=== PATIENT | female | born 1985 | race Caucasian/White ===

== ENCOUNTER 2018-12-23 09:29 | Emergency (ER) | payer BC ==
[2018-12-23 10:00] VITALS: BP 125/85
--- NOTE | 2018-12-23 10:03 | UC ---
Back Pain HPI - HPI Summary HPI Summary: 33 yo female presents with low back pain. 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 About a month ago she was working and felt a stain in her low back while moving a patient. Was painful for a few days, but improved with rest. Today she tells me that on 12/20 she felt some low back pain, but nothing significant. On 12/21 she went to work and was very active and was moving/turning/lifting patients as usual and her back pain worsened. Since that time her pain has been in her lower back with radiation into the left buttock and posterior left leg. She tried to go to work today, but was too painful and left early. She has taken ibuprofen with mild relief. Denies numbness, tingling, saddle anesthesia, or loss of bowel/bladder control. - History of Current Complaint Chief Complaint: UCBackPain Stated Complaint: BACK PAIN Time Seen by Provider: 12/23/18 10:02 Hx Obtained From: Patient Hx Last Menstrual Period: iud Onset/Duration: Gradual Onset Timing: Constant Severity Initially: Moderate Severity Currently: Severe Pain Intensity: 7 Pain Scale Used: 0-10 Numeric - Allergies/Home Medications Allergies/Adverse Reactions: Allergies Allergy/AdvReac Type Severity Reaction Status Date / Time No Known Allergies Allergy Verified 12/23/18 10:01 PMH/Surg Hx/FS Hx/Imm Hx - Additional Past Medical History Additional PMH: None - Surgical History Surgical History: Yes Surgery Procedure, Year, and Place: ovarian cyst right side - Family History Known Family History: Positive: None - Social History Occupation: Employed Full-time Lives: With Family Alcohol Use: None Substance Use Type: None Smoking Status (MU): Heavy Every Day Tobacco Smoker Household Exposure Type: Cigarettes Review of Systems All Other Systems Reviewed And Are Negative: Yes Constitutional: Positive: Negative Skin: Positive: Negative Respiratory: Positive: Negative Cardiovascular: Positive: Negative Gastrointestinal: Positive: Negative Genitourinary: Positive: Negative Neurovascular: Positive: Negative Musculoskeletal: Positive: Other: - Low back pain Neurological: Positive: Negative Psychological: Positive: Negative Physical Exam - Summary Physical Exam Summary: GENERAL: NAD. WDWN. No pain distress. SKIN: No rashes, sores, lesions, or open wounds. NECK: Supple. FROM. Nontender. No lymphadenopathy. CHEST: CTAB. No r/r/w. No accessory muscle use. Breathing comfortably and in no distress. CV: RRR. Without m/r/g. Pulses intact. Cap refill <2seconds MSK: TTP over left SI. No vertebral tenderness. Pain with flexion and extension of spine. Positive SLR on left for low back pain with radiation into left buttocks and left leg. Strength 5/5 B/L LEs including dorsiflexion and plantar flexion. FROM B/L LEs. No edema. NEURO: Alert. Sensations intact B/L LEs L3-S1. Reflexes intact PSYCH: Age appropriate behavior. Triage Information Reviewed: Yes Vital Signs: Initial Vital Signs Temp 98.6 F 12/23/18 09:57 Pulse 96 12/23/18 09:57 Resp 17 12/23/18 09:57 BP 125/85 12/23/18 09:57 Pulse Ox 100 12/23/18 09:57 Vital Signs Reviewed: Yes Back Pain Course/Dx - Course Course Of Treatment: Suspect sciatica. Will start her with physical therapy and prednisone. Advised to continue the ibuprofen. Off work today and sunday. Strongly encouraged to f/u with Dr. Alonso for potential work related injury. - Differential Dx/Diagnosis Provider Diagnosis: Sciatica Discharge - Sign-Out/Discharge Documenting (check all that apply): Patient Departure All imaging exams completed and their final reports reviewed: No Studies - Discharge Plan Condition: Stable Disposition: HOME Prescriptions: Ibuprofen TAB* [Motrin TAB* 600 MG] 600 mg PO Q8H PRN #30 tab PRN Reason: Pain predniSONE TAB* [Deltasone 20 MG TAB*] 20 mg PO DAILY #11 tab Patient Education Materials: Sciatica (ED) Forms: *Work Release Referrals: Hanny Temple MD [Primary Care Provider] - Mike Alonso MD [Medical Doctor] - As Soon As Possible Additional Instructions: If you develop a fever, shortness of breath, chest pain, new or worsening symptoms - please call your PCP or go to the ED. 1) Rest and apply heat/ice to your lower back to reduce pain 2) Please schedule an appointment with Physical Therapy for further treatment 3) Please call Dr. Alonso at the number below to schedule an appointment regarding your low back pain - Billing Disposition and Condition Condition: STABLE Disposition: Home
== END 2018-12-23 10:27 | disposition home or self-care (01) ==
LOC: UCEAST 09:29
DX: M54.30 Sciatica, unspecified side (principal); F17.200 Nicotine dependence, unspecified, uncomplicated
CPT/HCPCS: 99212; G0463

== ENCOUNTER 2019-09-16 08:01 | Emergency (ER) | payer BC ==
[2019-09-16] MEDS ORDERED: hydrOXYzine HCL TAB* 25 MG PO ONE (08:18)
[2019-09-16 10:16] VITALS: BP 124/74
--- NOTE | 2019-09-16 10:25 | ED ---
Psychiatric Complaint - HPI Summary HPI Summary: Patient is a 34-year-old female presenting to the ED with symptoms of "panic attacks" which she feels has been worsening since December of this year. She states she has never had this in the past, however her committed suicide in December of this year and since then she has been waking up intermittently with symptoms of heart palpitations, bilateral upper extremity tingling, lightheadedness and feelings of shortness of breath. She states symptoms resolve after an episode of crying intake several hours usually. She denies taking any medication, history of depression or anxiety or any history of panic attacks. She does not see a counselor or therapist. Denies any cardiac conditions. Denies SI/HI. - History Of Current Complaint Chief Complaint: EDChestWallPain Time Seen by Provider: 09/16/19 08:11 Hx Obtained From: Patient Hx Last Menstrual Period: iud ?: No Onset/Duration: Sudden Onset Timing: Constant Severity Initially: Moderate Severity Currently: Moderate Character: Anxious Aggravating Factor(s): Recent Stress - december 2018 Alleviating Factor(s): Nothing Associated Signs And Symptoms: Positive: Sleep Disturbance, Appetite Change, Social Withdrawal - Risk Factor(s) Completed Suicide Risk Factors: Negative - Allergies/Home Medications Allergies/Adverse Reactions: Allergies Allergy/AdvReac Type Severity Reaction Status Date / Time No Known Allergies Allergy Verified 09/16/19 08:23 PMH/Surg Hx/FS Hx/Imm Hx Previously Healthy: Yes - Surgical History Surgery Procedure, Year, and Place: ovarian cyst right side - Immunization History Hx Pertussis Vaccination: No Immunizations Up to Date: Yes Infectious Disease History: No Infectious Disease History: Denies: Traveled Outside the [place] in Last 30 Days - Family History Known Family History: Positive: None - Social History Occupation: Employed Full-time Lives: With Family Alcohol Use: None Hx Substance Use: No Substance Use Type: Reports: None Hx Tobacco Use: Yes Smoking Status (MU): Heavy Every Day Tobacco Smoker Review of Systems Negative: Fever, Chills, Fatigue, Skin Diaphoresis Negative: Palpitations, Chest Pain Negative: Shortness Of Breath, Cough Negative: Arthralgia, Myalgia Skin: Negative Neurological: Negative Positive: Anxious All Other Systems Reviewed And Are Negative: Yes Physical Exam Triage Information Reviewed: Yes Vital Signs On Initial Exam: Initial Vitals Temp Pulse Resp BP Pulse Ox 98.0 F 73 16 137/74 100 09/16/19 08:05 09/16/19 08:05 09/16/19 08:05 09/16/19 08:05 09/16/19 08:05 Vital Signs Reviewed: Yes Appearance: Positive: Well-Appearing, Well-Nourished Skin: Positive: Warm, Skin Color Reflects Adequate Perfusion Head/Face: Positive: Normal Head/Face Inspection Eyes: Positive: EOMI, Conjunctiva Clear Neck: Positive: Supple, No Lymphadenopathy Respiratory/Lung Sounds: Positive: Clear to Auscultation, Breath Sounds Present Cardiovascular: Positive: RRR, Pulses are Symmetrical in both Upper and Lower Extremities, S1, S2. Negative: Leg Edema Left, Leg Edema Right Musculoskeletal: Positive: Normal, Strength/ROM Intact Neurological: Positive: Speech Normal Psychiatric: Positive: Anxious - and tearful AVPU Assessment: Alert Procedures - Sedation Patient Received Moderate/Deep Sedation with Procedure: No Diagnostics - Vital Signs Vital Signs Temp Pulse Resp BP Pulse Ox 09/16/19 10:14 98.5 F 87 16 124/74 100 09/16/19 09:00 79 18 100 09/16/19 08:47 91 23 124/84 100 09/16/19 08:19 87 12 95 09/16/19 08:17 80 134/72 100 09/16/19 08:05 98.0 F 73 16 137/74 100 - Laboratory Lab Statement: Any lab studies that have been ordered have been reviewed, and results considered in the medical decision making process. Course/Dx - Course Course Of Treatment: During the course of treatment, the patient is evaluated for symptoms of panic attacks. She has been having these symptoms since December, since her committed suicide. She was given discussed case with social work, who has given her outside resources at [facility]. EKG performed which shows NSR with a rate of 83. Patient was on the cardiopulmonary monitor while in the ED which showed no acute changes. She denies any chest pain or shortness of breath at this time. She will be diagnosed with panic attacks and anxiety, symptoms related to life event. She will follow-up at [facility]. She is taken out of work 4 days. - Differential Dx/Clinical Impression Differential Diagnosis/HQI/PQRI: Positive: Other - anxiety, PTSD, anxious about life event, depression, sadness, panic attack Provider Diagnosis: Panic attack Discharge ED - Sign-Out/Discharge Documenting (check all that apply): Patient Departure - Discharge Plan Condition: Stable Disposition: HOME Prescriptions: RX: hydrOXYzine HCL TAB* [Atarax 25 MG TAB*] 25 mg PO TID PRN #15 tab MDD 3 PRN Reason: Anxiety Patient Education Materials: Hydroxyzine (By mouth), Panic Attack (ED) Forms: *Work Release Referrals: [facility] [Outside] - 1 Week Hanny Temple MD [Primary Care Provider] - Additional Instructions: Take hydroxyzine three times daily as needed for anxiety Please follow up wtih - Billing Disposition and Condition Condition: STABLE Disposition: Home
== END 2019-09-16 10:14 | disposition home or self-care (01) ==
LOC: ED 08:01
DX: F41.0 Panic disorder [episodic paroxysmal anxiety] (principal); F17.200 Nicotine dependence, unspecified, uncomplicated
CPT/HCPCS: 93005; 99282; A9270-GY